=== PATIENT | female | born 1945 | race American Indian/Alaskan Native ===

== ENCOUNTER 2020-08-13 05:01 | Emergency (ER) | payer MEDICAID, MEDICARE ==
[2020-08-13] MEDS ORDERED: fentaNYL 100 MCG/2 ML INJ IV ONE (05:26)
[2020-08-13] MEDS ORDERED: ONDANSETRON 4 MG/2 ML INJ IV ONE (05:26)
--- NOTE | 2020-08-13 05:29 | Emergency Department Report ---
Chief Complaint: Abdominal Pain Stated Complaint: ABDOMINAL PAIN Time Seen by Provider: 08/13/20 05:28 - HPI History of Present Illness: 74-year-old female present with a chief complaint of diffuse abdominal pain for 1 day. Patient admits to nausea vomiting and some constipation. Patient denies history of fever or dysuria - Exam Vital Signs: Vital Signs 08/13/20 05:05 Temperature 98.5 F Pulse Rate 79 Respiratory 18 Rate Blood Pressure 155/75 O2 Sat by Pulse 97 Oximetry MSE screening note: Focused history and physical exam performed. Due to findings the following was ordered: Analgesia CT abdomen pelvis ED Disposition for MSE Condition: Stable Instructions: Abdominal Pain (ED)
[2020-08-13 05:36] LABS: Bilirubin,Urine NEG (Negative); Blood,Urine NEG (Negative); Color,Urine Yellow (Yellow); Mucus,Urine FEW /HPF
[2020-08-13 05:50] LABS: Basophils % (Auto) 0.5 % (0.0-1.8); Eosinophils % (Auto) 0.5 % (0.0-4.3); Hematocrit 36.4 % (30.3-42.9); Hemoglobin 12.6 gm/dl (10.1-14.3); Lymphocytes # (Auto) 0.7 K/mm3 (1.2-5.4); Lymphocytes % (Auto) 8.3 % (13.4-35.0); Mean Corpuscular HGB Conc 34 % (30-34); Mean Corpuscular Volume 83 fl (79-97); Monocytes # (Auto) 0.2 K/mm3 (0.0-0.8); Monocytes % (Auto) 2.6 % (0.0-7.3); Platelet Count 235 K/mm3 (140-440); Red Cell Distribution Width 15.9 % (13.2-15.2)
[2020-08-13 06:06] LABS: Alanine Aminotransferase 214 units/L (7-56); BUN/Creatinine Ratio 18; Blood Urea Nitrogen 16 mg/dL (7-17); Calcium 10.2 mg/dL (8.4-10.2); Hemolysis Index 2
--- NOTE | 2020-08-13 06:08 | Emergency Department Report ---
HPI - General Chief Complaint: Abdominal Pain Time Seen by Provider: 08/13/20 05:28 - HPI HPI: This is a 74-year-old -[place] female presents to the emergency department with a complaint of a 1 day history of generalized abdominal pain, along with some associated nausea without vomiting. Patient has denies any fever, constipation, diarrhea, dysuria, vaginal bleeding or discharge. She did not take anything for symptoms prior to presentation. Prior to receiving any analgesia this morning, the patient's abdominal pain is 10 out of 10. It wo rsens with any type of movement. It improves with staying still. She has a past medical history of hypertension, diet-controlled diabetes, osteoarthritis of the knees. She has a surgical history of a cholecystectomy and total hysterectomy. She is switching primary care physicians and about to establish care with 1. Patient also says that she does have some level of chronic kidney disease for which she follows with a waxed bag machine operator but has been told that her kidneys are "good to go." No recent travel or sick contacts at home. ED Past Medical Hx - Past Medical History Previous Medical History?: Yes Hx Hypertension: Yes (Denies CP) Hx Diabetes: Yes (2009;DIET CONTROLLED ) Hx Renal Disease: No Hx Arthritis: Yes (KNEES) Hx Headaches / Migraines: Yes - Surgical History Past Surgical History?: Yes Hx Cholecystectomy: Yes (1979) - Social History Smoking Status: Never Smoker Substance Use Type: None - Medications Home Medications: Home Medications Medication Instructions Recorded Confirmed Last Taken Type Aspirin EC [Aspirin Enteric Coated 81 mg PO QDAY 07/08/14 07/08/14 05/27/14 History TAB] Carvedilol 25 mg PO BID 07/08/14 07/14/14 07/14/14 05:00 History Furosemide 40 mg PO BID 07/08/14 07/14/14 07/13/14 History Ketorolac Ophth Soln (Nf) [Acular 1 drop OP BID 07/08/14 07/14/14 07/13/14 History Ophth Soln 0.5%] Ranitidine HCl [Zantac] 150 mg PO QDAY 07/08/14 07/14/14 07/14/14 05:00 History Travoprost (Nf) [Travatan Z 0.004%] 1 drop OP HS 07/08/14 07/08/14 Unknown History Valsartan [Diovan] 160 mg PO DAILY 07/08/14 07/14/14 07/13/14 History Vitamin B Complex [Super B-50 2,000 units PO DAILY 07/08/14 07/14/14 07/12/14 History Complex] prednisoLONE ACETATE 1% [Pred 1 drop OP DAILY 07/08/14 07/14/14 07/13/14 History Forte 1%] Ciprofloxacin HCl 500 mg PO BID #14 tablet 08/13/20 Unknown Rx metroNIDAZOLE [Flagyl] 500 mg PO Q12HR #14 tab 08/13/20 Unknown Rx ED Review of Systems ROS: Stated complaint: ABDOMINAL PAIN Other details as noted in HPI Comment: All other systems reviewed and negative Constitutional: denies: chills, fever Eyes: denies: eye pain, vision change ENT: denies: ear pain, throat pain Respiratory: denies: cough, shortness of breath Cardiovascular: denies: chest pain, palpitations Gastrointestinal: abdominal pain, nausea. denies: vomiting Genitourinary: denies: dysuria, discharge Musculoskeletal: denies: back pain, arthralgia Skin: denies: rash, lesions Neurological: denies: headache, weakness Physical Exam - Physical Exam Vital Signs: Vital Signs 08/13/20 05:05 Temperature 98.5 F Pulse Rate 79 Respiratory 18 Rate Blood Pressure 155/75 O2 Sat by Pulse 97 Oximetry Physical Exam: GENERAL: The patient is well-developed well-nourished. HENT: Normocephalic. Atraumatic. Patient has moist mucous membranes. EYES: Extraocular motions are intact. NECK: Supple. Trachea is midline. CHEST/LUNGS: Clear to auscultation. There is no respiratory distress noted. HEART/CARDIOVASCULAR: Regular. There is no tachycardia. There is no murmur. ABDOMEN: Abdomen is soft. Generalized abdominal tenderness to palpation. No guarding. Patient has normal bowel sounds. There is no abdominal distention. SKIN: Skin is warm and dry. NEURO: The patient is awake, alert, and oriented. The patient is cooperative. The patient has no focal neurologic deficits. Normal speech. MUSCULOSKELETAL: There is no tenderness or deformity. There is no limitation range of motion. ED Course Vital Signs 08/13/20 05:05 Temperature 98.5 F Pulse Rate 79 Respiratory 18 Rate Blood Pressure 155/75 O2 Sat by Pulse 97 Oximetry ED Medical Decision Making - Lab Data Result diagrams: 08/13/20 05:18 08/13/20 05:18 Lab Results 08/13/20 08/13/20 08/13/20 Range/Units 05:18 05:18 05:18 WBC 8.4 (4.5-11.0) K/mm3 RBC 4.40 (3.65-5.03) M/mm3 Hgb 12.6 (10.1-14.3) gm/dl Hct 36.4 (30.3-42.9) % MCV 83 (79-97) fl MCH 29 (28-32) pg MCHC 34 (30-34) % RDW 15.9 H (13.2-15.2) % Plt Count 235 (140-440) K/mm3 Lymph % (Auto) 8.3 L (13.4-35.0) % Isabella % (Auto) 2.6 (0.0-7.3) % Eos % (Auto) 0.5 (0.0-4.3) % Baso % (Auto) 0.5 (0.0-1.8) % Lymph # (Auto) 0.7 L (1.2-5.4) K/mm3 Isabella # (Auto) 0.2 (0.0-0.8) K/mm3 Eos # (Auto) 0.0 (0.0-0.4) K/mm3 Baso # (Auto) 0.0 (0.0-0.1) K/mm3 Seg Neutrophils % 88.1 H (40.0-70.0) % Seg Neutrophils # 7.4 (1.8-7.7) K/mm3 Sodium 135 L (137-145) mmol/L Potassium 3.8 (3.6-5.0) mmol/L Chloride 98.3 (98-107) mmol/L Carbon Dioxide 24 (22-30) mmol/L Anion Gap 17 mmol/L BUN 16 (7-17) mg/dL Creatinine 0.9 (0.6-1.2) mg/dL Estimated GFR > 60 ml/min BUN/Creatinine Ratio 18 % Glucose 171 H (65-100) mg/dL Calcium 10.2 (8.4-10.2) mg/dL Total Bilirubin 2.50 H (0.1-1.2) mg/dL AST 359 H (5-40) units/L ALT 214 H (7-56) units/L Alkaline Phosphatase 343 H (35-129) units/L Total Protein 8.6 H (6.3-8.2) g/dL Albumin 5.0 (3.9-5) g/dL Albumin/Globulin Ratio 1.4 % Lipase (13-60) units/L Urine Color Yellow (Yellow) Urine Turbidity Clear (Clear) Urine pH 8.0 H (5.0-7.0) Ur Specific [place] 1.009 (1.003-1.030) Urine Protein 100 mg/dl (Negative) mg/dL Urine Glucose (UA) 150 (Negative) mg/dL Urine Ketones Neg (Negative) mg/dL Urine Blood Neg (Negative) Urine Nitrite Neg (Negative) Urine Bilirubin Neg (Negative) Urine Urobilinogen 2.0 (<2.0) mg/dL Ur Leukocyte Esterase Neg (Negative) Urine WBC (Auto) 1.0 (0.0-6.0) /HPF Urine RBC (Auto) 1.0 (0.0-6.0) /HPF U Epithel Cells (Auto) < 1.0 (0-13.0) /HPF Urine Mucus Few /HPF 03/20/21 Range/Units 05:18 WBC (4.5-11.0) K/mm3 RBC (3.65-5.03) M/mm3 Hgb (10.1-14.3) gm/dl Hct (30.3-42.9) % MCV (79-97) fl MCH (28-32) pg MCHC (30-34) % RDW (13.2-15.2) % Plt Count (140-440) K/mm3 Lymph % (Auto) (13.4-35.0) % Isabella % (Auto) (0.0-7.3) % Eos % (Auto) (0.0-4.3) % Baso % (Auto) (0.0-1.8) % Lymph # (Auto) (1.2-5.4) K/mm3 Isabella # (Auto) (0.0-0.8) K/mm3 Eos # (Auto) (0.0-0.4) K/mm3 Baso # (Auto) (0.0-0.1) K/mm3 Seg Neutrophils % (40.0-70.0) % Seg Neutrophils # (1.8-7.7) K/mm3 Sodium (137-145) mmol/L Potassium (3.6-5.0) mmol/L Chloride (98-107) mmol/L Carbon Dioxide (22-30) mmol/L Anion Gap mmol/L BUN (7-17) mg/dL Creatinine (0.6-1.2) mg/dL Estimated GFR ml/min BUN/Creatinine Ratio % Glucose (65-100) mg/dL Calcium (8.4-10.2) mg/dL Total Bilirubin (0.1-1.2) mg/dL AST (5-40) units/L ALT (7-56) units/L Alkaline Phosphatase (35-129) units/L Total Protein (6.3-8.2) g/dL Albumin (3.9-5) g/dL Albumin/Globulin Ratio % Lipase 41 (13-60) units/L Urine Color (Yellow) Urine Turbidity (Clear) Urine pH (5.0-7.0) Ur Specific [place] (1.003-1.030) Urine Protein (Negative) mg/dL Urine Glucose (UA) (Negative) mg/dL Urine Ketones (Negative) mg/dL Urine Blood (Negative) Urine Nitrite (Negative) Urine Bilirubin (Negative) Urine Urobilinogen (<2.0) mg/dL Ur Leukocyte Esterase (Negative) Urine WBC (Auto) (0.0-6.0) /HPF Urine RBC (Auto) (0.0-6.0) /HPF U Epithel Cells (Auto) (0-13.0) /HPF Urine Mucus /HPF - Radiology Data Radiology results: report reviewed CT ABDOMEN AND PELVIS WITH CONTRAST INDICATION: Diffuse abdominal pain n/v. TECHNIQUE: Axial CT images were obtained through the abdomen and pelvis after 100 cc IV contrast. All CT scans at this location are performed using CT dose reduction for ALARA by means of automated e xposure control. COMPARISON: None available. FINDINGS: LOWER CHEST: No significant abnormality. LIVER: No significant abnormality. GALLBLADDER: Surgically absent. BILE DUCTS: No significant abnormality. PANCREAS: No significant abnormality. SPLEEN: No significant abnormality. ADRENALS: No significant abnormality. RIGHT KIDNEY and URETER: 1.5 cm exophytic right renal lesion with increased attenuation within it or enhancement LEFT KIDNEY and URETER: No significant abnormality. STOMACH and SMALL BOWEL: No significant abnormality. COLON: Extensive right-sided colonic diverticulosis with mild pericolonic inflammation. Mild colonic diverticulosis APPENDIX: Normal PERITONEUM: No free fluid. No free air. No fluid collection. LYMPH NODES: No significant adenopathy. AORTA and ARTERIES: Moderate vascular calcifications nonaneurysmal aorta and SMA. IVC and VEINS: No significant abnormality. URINARY BLADDER: No significant abnormality. REPRODUCTIVE ORGANS: Surgically absent ADDITIONAL FINDINGS: None. SKELETAL SYSTEM: Moderate facet degenerative disease lumbar spine. IMPRESSION: 1. Mild uncomplicated right-sided diverticulitis. No abscess or free air. 2. Probable 1.5 cm right renal cell carcinoma versus less likely complex cyst. Recommend renal ultrasound or pre and postcontrast CT for confirmation - Medical Decision Making This patient presents to the emergency department with complaint of a 1 day history of generalized abdominal pain, along with some nausea and vomiting. On examination the patient does have some reproducible abdominal tenderness to palpation, but otherwise the abdomen is soft, nondistended and nontoxic in appearance. Patient's labs shows transaminitis as well as elevated bilirubin. Patient does have a history of a previous cholecystectomy. CT scan of the abdomen and pelvis with IV contrast was done that shows diffuse mild uncomplicated diverticulitis without abscess formation or microperforation. Despite the transaminitis the liver appears normal. CT also shows a 1.5 cm exophytic right renal lesion that radiology reads as concern for renal cell carcinoma versus a complicated cyst. The patient has normal renal function. Patient was given a dose of IV Levaquin and Flagyl. Vital signs have been reassuring throughout her ED course including being afebrile. The patient does not have any leukocytosis. The diverticulitis appears uncomplicated. For all these reasons the patient will be discharged home and we will attempt to treat in the outpatient setting. The patient does have good outpatient follow-up with primary care, nephrology and gastroenterology. She will return to the emergency department with any worsening of her symptoms or with any acute distress. Critical Care Time: No Critical care attestation.: If time is entered above; I have spent that time in minutes in the direct care of this critically ill patient, excluding procedure time. ED Disposition Clinical Impression: Diverticulitis, Renal lesion, Elevated liver enzymes Disposition: TO HOME OR SELFCARE Is pt being admited?: No Condition: Stable Instructions: Diverticulitis, Abdominal Pain (ED) Additional Instructions: Please follow-up with your primary care physician in the next few days. Please follow-up with your vending machine collector regarding the findings of dive rticulitis, your elevated liver enzymes, and your abdominal pains. Please follow-up with your waxed bag machine operator regarding the CT findings of a right kidney lesion. Please avoid any Tylenol/acetaminophen use, or any alcohol use, until follow-up with your vending machine collector, secondary to the elevated liver enzymes. You have been prescribed a medication that is sedating and therefore should not be taken prior to driving, working, and responsible for children and in no way should be mixed with alcohol of any quantity. Return to the emergency department with any worsening of your symptoms, new or concerning symptoms not addressed during this current emergency department visit, or with any acute distress. Prescriptions: Ciprofloxacin HCl 500 mg PO BID #14 tablet metroNIDAZOLE [Flagyl] 500 mg PO Q12HR #14 tab Referrals: PCP, Your [Other] - 2-3 Days Trap Operator, Your [Other] - 2-3 Days Residential Manager, Your [Other] - 2-3 Days Time of Disposition: 08:07
--- NOTE | 2020-08-13 06:48 | Cat Scan Report ---
CT ABDOMEN AND PELVIS WITH CONTRAST INDICATION: Diffuse abdominal pain n/v. TECHNIQUE: Axial CT images were obtained through the abdomen and pelvis after 100 cc IV contrast. All CT scans at this location are performed using CT dose reduction for ALARA by means of automated exposure contr ol. COMPARISON: None available. FINDINGS: LOWER CHEST: No significant abnormality. LIVER: No significant abnormality. GALLBLADDER: Surgically absent. BILE DUCTS: No significant abnormality. PANCREAS: No significant abnormality. SPLEEN: No significant abnormality. ADRENALS: No significant abnormality. RIGHT KIDNEY and URETER: 1.5 cm exophytic right renal lesion with increased attenuation within it or enhancement LEFT KIDNEY and URETER: No significant abnormality. STOMACH and SMALL BOWEL: No significant abnormality. COLON: Extensive right-sided colonic diverticulosis with mild pericolonic inflammation. Mild colonic diverticulosis APPENDIX: Normal PERITONEUM: No free fluid. No free air. No fluid collection. LYMPH NODES: No significant adenopathy. AORTA and ARTERIES: Moderate vascular calcifications nonaneurysmal aorta and SMA. IVC and VEINS: No significant abnormality. URINARY BLADDER: No significant abnormality. REPRODUCTIVE ORGANS: Surgically absent ADDITIONAL FINDINGS: None. SKELETAL SYSTEM: Moderate facet degenerative disease lumbar spine. IMPRESSION: 1. Mild uncomplicated right-sided diverticulitis. No abscess or free air. 2. Probable 1.5 cm right renal cell carcinoma versus less likely complex cyst. Recommend renal ultras ound or pre and postcontrast CT for confirmation Signer Name: Eyad Arias MD Signed: 08/13/2020 6:44 AM Workstation Name: [id number]
[2020-08-13] MEDS ORDERED: metroNIDAZOLE/NS 500 MG/100 ML 500 MG/100 ML BAG IV ONE (06:55)
[2020-08-13 07:50] VITALS: BP 143/62
--- NOTE | 2020-08-15 09:19 | Electrocardiograph Report ---
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
== END 2020-08-13 10:02 | disposition home or self-care (01) ==
LOC: ED 05:01
DX: K57.90 Diverticulosis of intestine, part unspecified, without perforation or abscess without bleeding (principal); N28.9 Disorder of kidney and ureter, unspecified; R74.8 Abnormal levels of other serum enzymes; I10 Essential (primary) hypertension; E11.9 Type 2 diabetes mellitus without complications; M19.91 Primary osteoarthritis, unspecified site; Z90.49 Acquired absence of other specified parts of digestive tract; Z79.2 Long term (current) use of antibiotics; Z79.899 Other long term (current) drug therapy; Z88.8 Allergy status to other drugs, medicaments and biological substances
CPT/HCPCS: 36415; 74177; 80053; 81001; 83690; 85025; 93005; 96365; 96366; 96368; 96375; 99284; J1956; J2405; J3010; Q9967

== ENCOUNTER 2021-05-01 05:56 | Observation (INO) | payer MEDICAID, MEDICARE ==
[2021-05-01] MEDS ORDERED: ONDANSETRON 4 MG/2 ML INJ IV ONE (06:40)
[2021-05-01] MEDS ORDERED: MORPHINE 4 MG/1 ML INJ IV ONE ×2 (06:40→09:57)
--- NOTE | 2021-05-01 06:43 | Emergency Department Report ---
HPI - General Chief Complaint: Abdominal Pain Time Seen by Provider: 05/01/21 06:29 - HPI HPI: 75-year-old -[place] female presents to the emergency department with a complaint of severe spasmodic abdominal pain that has been going on for the past 6 hours. It is associated with some nausea without vomiting. The patient was seen here in July of this year for similar symptoms and was found to have uncomplicated diverticulitis and a right-sided renal mass that was undifferentiated as possible carcinoma versus cyst. She says that she has not seen primary care, nephrology, gastroenterology since that time as she has been having multiple orthopedic surgeries and procedures due to lymphedema. She has not taken anything for symptoms prior to presentation. She has a history of hypertension and does present with elevated blood pressure, but has not yet taken her blood pressure medication this morning. She has a history of a previous cholecystectomy and total hysterectomy. Her abdominal pain is 9 out of 10 in intensity. No known aggravating or alleviating factors. ED Past Medical Hx - Past Medical History Hx Hypertension: Yes (Denies CP) Hx Diabetes: Yes (2009;DIET CONTROLLED ) Hx Renal Disease: No Hx Arthritis: Yes (KNEES) Hx Headaches / Migraines: Yes - Surgical History Hx Cholecystectomy: Yes (1979) - Social History Smoking Status: Never Smoker Substance Use Type: None - Medications Home Medications: Home Medications Medication Instructions Recorded Confirmed Last Taken Type Aspirin EC [Aspirin Enteric Coated 81 mg PO QDAY 07/08/14 07/08/14 05/27/14 History TAB] Carvedilol 25 mg PO BID 07/08/14 07/14/14 07/14/14 05:00 History Furosemide 40 mg PO BID 07/08/14 07/14/14 07/13/14 History Ketorolac Ophth Soln (Nf) [Acular 1 drop OP BID 07/08/14 07/14/14 07/13/14 History Ophth Soln 0.5%] Ranitidine HCl [Zantac] 150 mg PO QDAY 07/08/14 07/14/14 07/14/14 05:00 History Travoprost (Nf) [Travatan Z 0.004%] 1 drop OP HS 07/08/14 07/08/14 Unknown History Valsartan [Diovan] 160 mg PO DAILY 07/08/14 07/14/14 07/13/14 History Vitamin B Complex [Super B-50 2,000 units PO DAILY 07/08/14 07/14/14 07/12/14 History Complex] prednisoLONE ACETATE 1% [Pred 1 drop OP DAILY 07/08/14 07/14/14 07/13/14 History Forte 1%] Ciprofloxacin HCl 500 mg PO BID #14 tablet 08/13/20 Unknown Rx metroNIDAZOLE [Flagyl] 500 mg PO Q12HR #14 tab 08/13/20 Unknown Rx ED Review of Systems ROS: Stated complaint: STOMACH PAIN Other details as noted in HPI Comment: All other systems reviewed and negative Constitutional: denies: chills, fever Eyes: denies: eye pain, vision change ENT: denies: ear pain, throat pain Respiratory: denies: cough, shortness of breath Cardiovascular: denies: chest pain, palpitations Gastrointestinal: abdominal pain, nausea. denies: vomiting, diarrhea, constipation, melena Genitourinary: denies: dysuria, discharge Musculoskeletal: denies: back pain, arthralgia Skin: denies: rash, lesions Neurological: denies: headache, weakness Physical Exam - Physical Exam Vital Signs: Vital Signs 05/01/21 06:03 Temperature 98.7 F Pulse Rate 61 Respiratory 22 Rate Blood Pressure 184/68 O2 Sat by Pulse 95 Oximetry Physical Exam: GENERAL: The patient is well-developed well-nourished. HENT: Normocephalic. Atraumatic. Patient has moist mucous membranes. EYES: Extraocular motions are intact. NECK: Supple. Trachea is midline. CHEST/LUNGS: Clear to auscultation. There is no respiratory distress noted. HEART/CARDIOVASCULAR: Regular. There is no tachycardia. There is no murmur. ABDOMEN: Abdomen is soft. Generalized abdominal tenderness to palpation. Mild guarding. Patient has normal bowel sounds. Obese abdomen. SKIN: Skin is warm and dry. Bilateral lower extremity lymphedema. NEURO: The patient is awake, alert, and oriented. The patient is cooperative. The patient has no focal neurologic deficits. Normal speech. MUSCULOSKELETAL: There is no tenderness or deformity. ED Course Vital Signs 05/01/21 06:03 Temperature 98.7 F Pulse Rate 61 Respiratory 22 Rate Blood Pressure 184/68 O2 Sat by Pulse 95 Oximetry - Consultations Consultation #1: 05/01/21 11:02 I spoke to the optimization analyst on-call, Dr. Malhotra. He listened to the case presentation including the lab results and CT imaging results. The patient will need an MRCP and they will consult on the patient. ED Medical Decision Making - Lab Data Result diagrams: 05/01/21 07:01 05/01/21 07:01 - Radiology Data Radiology results: report reviewed, image reviewed interpreted by me: Chest x-ray does not show any acute process. There are no pleural effusions, obvious pneumonia and there is no pneumothorax. No widened mediastinum. Abdominal x-ray shows nonspecific nonobstructive bowel gas. No free air. CT ABDOMEN AND PELVIS WITH CONTRAST INDICATION / CLINICAL INFORMATION: Abd pain. [id number] 100CC.. TECHNIQUE: Axial CT images were obtained through the abdomen and pelvis after 100 cc of Omnipaque 300 IV contrast. Sagittal and coronal reformatted images. All CT scans at this location are performed using CT dose reduction for ALARA by means of automated exposure control. COMPARISON: 08/13/2020 FINDINGS: LOWER CHEST: No significant abnormality. LIVER: No significant abnormality. GALLBLADDER: Surgically removed. BILE DUCTS: Moderate diffuse intrahepatic and extrahepatic biliary dilatation has developed/increased since the previous exam. The common bile duct measures up to 8-9 mm in diameter. No obvious obstructing lesion is identified in the distal common bile duct on CT. PANCREAS: There is perhaps mild dilatation of the pancreatic duct is well measuring up to 4 mm in diameter. Again this appears slightly increased since the previous exam. There appears to be pancreas divisum. SPLEEN: No significant abnormality. ADRENALS: No significant abnormality. RIGHT KIDNEY and URETER: Stable appearance of the 1.8 cm enhancing lesion near mid pole in the right kidney. Subcentimeter cyst near mid pole is also unchanged. No hydronephrosis. LEFT KIDNEY and URETER: No significant abnormality. STOMACH and SMALL BOWEL: No significant abnormality. COLON: Stable mild diverticulosis of the colon. No acute inflammation or obstruction. APPENDIX: No significant abnormality. PERITONEUM: No free fluid. No free air. No fluid collection. LYMPH NODES: No significant adenopathy. AORTA and ARTERIES: Mild atherosclerotic calcification without acute abnormality. IVC and VEINS: No significant abnormality. URINARY BLADDER: No significant abnormality. REPRODUCTIVE ORGANS: Hysterectomy ADDITIONAL FINDINGS: None. SKELETAL SYSTEM: No acute injury or bony lesion. Moderate discogenic DJD and facet arthropathy at L3-4 with grade 1 anterolisthesis. IMPRESSION: Moderate diffuse biliary dilatation, and possibly pancreatic duct dilatation, has developed or increased since 08/13/2020 exam. There is been previous cholecystectomy. No obvious obstructing lesion is identified in the distal common bile duct. 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 Correlate for biliary symptoms and consider further evaluation with MRCP. Stable appearance of the 1.8 cm enhancing mass in the mid right kidney. Renal neoplasm is not excluded. Mild diverticulosis of the colon without evidence of diverticulitis. - Medical Decision Making This patient presents with acute abdominal pain that started around midnight. On examination there is reproducible abdominal tenderness to palpation. The patient continues to wince secondary to spasmodic pains. Labs shows elevated bilirubin, transaminitis, and elevated LFTs, but these are consistent with her previous visit in July. CT scan of the abdomen pelvis shows dilated intrahepatic and extrahepatic bile duct that was not previously seen on the CT scan of the abdomen pelvis from July. GI was contacted and consulted. The patient was sent for an MRCP after admission orders were placed. I did check up on this and it appears that patient does have choledocholithiasis. Patient was admitted to the hospitalist service. Critical Care Time: No Critical care attestation.: If time is entered above; I have spent that time in minutes in the direct care of this critically ill patient, excluding procedure time. ED Disposition Clinical Impression: Intractable abdominal pain, Dilated bile duct, Abnormal CT of the abdomen, Elevated bilirubin, Elevated alkaline phosphatase level, Transaminitis, Choledocholithiasis Disposition: ADMITTED INPATIENT Is pt being admited?: Yes Condition: Fair Time of Disposition: 11:03
[2021-05-01 07:34] LABS: Basophils % (Auto) 0.5 % (0.0-1.8); Eosinophils % (Auto) 0.3 % (0.0-4.3); Hematocrit 37.3 % (30.3-42.9); Hemoglobin 11.9 gm/dl (10.1-14.3); Lymphocytes # (Auto) 0.5 K/mm3 (1.2-5.4); Lymphocytes % (Auto) 8.1 % (13.4-35.0); Mean Corpuscular HGB Conc 32 % (30-34); Mean Corpuscular Volume 84 fl (79-97); Monocytes # (Auto) 0.3 K/mm3 (0.0-0.8); Monocytes % (Auto) 4.4 % (0.0-7.3); Platelet Count 227 K/mm3 (140-440); Red Blood Count 4.43 M/mm3 (3.65-5.03); Red Cell Distribution Width 15.3 % (13.2-15.2)
[2021-05-01 07:47] LABS: Alanine Aminotransferase 195 units/L (7-56); Albumin 4.6 g/dL (3.9-5); BUN/Creatinine Ratio 11; Bilirubin,Direct 2.4 mg/dL (0-0.2); Blood Urea Nitrogen 10 mg/dL (7-17); Calcium 10.1 mg/dL (8.4-10.2); Hemolysis Index 8
--- NOTE | 2021-05-01 08:33 | XRay Report ---
ABDOMINAL SERIES WITH CHEST X-RAY ONE VIEW INDICATION: Abd pain. COMPARISON: None. IMPRESSION: Single view of the chest is within normal limits. The lungs are clear. Supine and uprig ht views the abdomen demonstrate no evidence for dilated bowel, fluid levels or free air. Normal stoo l in the colon. No pathologic calcifications are appreciated. Signer Name: Brendan Manriquez Jr, MD Signed: 05/01/2021 8:29 AM Workstation Name: [id number]
--- NOTE | 2021-05-01 09:36 | Cat Scan Report ---
CT ABDOMEN AND PELVIS WITH CONTRAST INDICATION / CLINICAL INFORMATION: Abd pain. [id number] 100CC.. TECHNIQUE: Axial CT images were obtained through the abdomen and pelvis after 100 cc of Omnipaque 300 IV contras t. Sagittal and coronal reformatted images. All CT scans at this location are performed using CT dose reduction for ALARA by means of automated exposure control. COMPARISON: 08/13/2020 FINDINGS: LOWER CHEST: No significant abnormality. LIVER: No significant abnormality. GALLBLADDER: Surgically removed. BILE DUCTS: Moderate diffuse intrahepatic and extrahepatic biliary dilatation has developed/increased since the previous exam. The common bile duct measures up to 8-9 mm in diameter. No obvious obstruct ing lesion is identified in the distal common bile duct on CT. PANCREAS: There is perhaps mild dilatation of the pancreatic duct is well measuring up to 4 mm in rosalva meter. Again this appears slightly increased since the previous exam. There appears to be pancreas di visum. SPLEEN: No significant abnormality. ADRENALS: No significant abnormality. RIGHT KIDNEY and URETER: Stable appearance of the 1.8 cm enhancing lesion near mid pole in the right kidney. Subcentimeter cyst near mid pole is also unchanged. No hydronephrosis. LEFT KIDNEY and URETER: No significant abnormality. STOMACH and SMALL BOWEL: No significant abnormality. COLON: Stable mild diverticulosis of the colon. No acute inflammation or obstruction. APPENDIX: No significant abnormality. PERITONEUM: No free fluid. No free air. No fluid collection. LYMPH NODES: No significant adenopathy. AORTA and ARTERIES: Mild atherosclerotic calcification without acute abnormality. IVC and VEINS: No significant abnormality. URINARY BLADDER: No significant abnormality. REPRODUCTIVE ORGANS: Hysterectomy ADDITIONAL FINDINGS: None. SKELETAL SYSTEM: No acute injury or bony lesion. 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 IMPRESSION: Moderate diffuse biliary dilatation, and possibly pancreatic duct dilatation, has developed or incre ased since 08/13/2020 exam. There is been previous cholecystectomy. No obvious obstructing lesion is i dentified in the distal common bile duct. 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 Correlate for biliary sympto ms and consider further evaluation with MRCP. Stable appearance of the 1.8 cm enhancing mass in the mid right kidney. Renal neoplasm is not exclude d. Mild diverticulosis of the colon without evidence of diverticulitis. Signer Name: Brendan Manriquez Jr, MD Signed: 05/01/2021 9:31 AM Workstation Name: [id number]
[2021-05-01 10:23] LABS: Bilirubin,Urine NEG (Negative); Blood,Urine NEG (Negative); Color,Urine Yellow (Yellow); Mucus,Urine FEW /HPF; WBC,Urine < 1.0 /HPF (0.0-6.0)
[2021-05-01] MEDS ORDERED: MORPHINE 4 MG/1 ML INJ IV PRN (11:30)
[2021-05-01] MEDS ORDERED: ACETAMINOPHEN 325 MG TAB PO PRN (11:30)
[2021-05-01] MEDS ORDERED: IBUPROFEN 600 MG TAB PO PRN (12:00)
[2021-05-01] MEDS ORDERED: ONDANSETRON 4 MG/2 ML INJ IV PRN (12:00)
[2021-05-01] MEDS ORDERED: MORPHINE 2 MG/1 ML INJ IV PRN (12:00)
--- NOTE | 2021-05-01 12:44 | Magnetic Resonance Report ---
MRI ABDOMEN MRCP INDICATION / CLINICAL INFORMATION: Abd pain, abnormal CT, elevated bili/LFT/alk phos CHOLECYSTECTOMY. TECHNIQUE: Multiplanar, multisequence series were obtained through the abdomen. Thin slab and radial MRCP images . COMPARISON: CT abdomen and pelvis performed earlier today FINDINGS: LIVER: No significant abnormality. GALLBLADDER: Surgically removed. BILE DUCTS: Moderate diffuse biliary dilatation is again seen on MRCP. The common bile duct measures 9 mm in diameter. A small filling defect is identified in the distal common bile duct consistent with choledocholithiasis. PANCREAS: No significant abnormality. No obvious pancreatic ductal dilatation on MRCP. Pancreas divis um is present. SPLEEN: No significant abnormality. ADRENALS: No significant abnormality. RIGHT KIDNEY AND URETER: 1.7 cm solid appearing mass near mid pole is again noted. LEFT KIDNEY AND URETER: No significant abnormality. STOMACH AND VISUALIZED BOWEL: No significant abnormality. PERITONEUM: No free fluid. No free air. No fluid collection. LYMPH NODES: No significant adenopathy. AORTA and ARTERIES: No significant abnormality. IVC and VEINS: No significant abnormality. ADDITIONAL FINDINGS: None. SKELETAL SYSTEM: No significant abnormality. IMPRESSION: Choledocholithiasis with moderate diffuse biliary dilatation. Pancreas divisum. 1.7 cm solid right renal mass. This appears unchanged since CT abdomen pelvis dated 08/13/2020. Renal neoplasm is not excluded. Signer Name: Brendan Manriquez Jr, MD Signed: 05/01/2021 12:40 PM Workstation Name: [id number]
--- NOTE | 2021-05-01 14:38 | History and Physical Report ---
History of Present Illness Date of examination: 05/01/21 Date of admission: 05/01/21 11:03 Chief complaint: Abdominal pain History of present illness: The patient is a 75-year-old female with past medical history of xci-ffrqcum-qqcfelged diabetes, bilateral osteoarthritis of knees, hypertension who presented with 9/10, spasmodic abdominal pain that been going on for approximately 6 hours without nausea or vomiting. The patient describes having the symptoms in July 2020, and at that point in time she was found to have uncomplicated diverticulitis with a right sided renal mass (etiology has not been determinedcarcinoma versus cyst). The patient has a history of cholecystectomy and total hysterectomy. The patient in the ED was found to have the following labs: Total bilirubin 3.3, direct bilirubin 2.4, AST 265, ALT 195, and alkaline phosphatase 431. CT abdomen and pelvis revealed dilated biliary tree and possible pancreatic duct dilation. The patient is being admitted for management of possible choledocholithiasis. Past History Past Medical History: arthritis (Of bilateral knees), diabetes (Diet controlled), hypertension Past Surgical History: cholecystectomy, hysterectomy Social history: lives with family Medications and Allergies Allergies Allergy/AdvReac Type Severity Reaction Status Date / Time acetaminophen AdvReac Vomiting Verified 07/08/14 14:34 [From Darvocet-N] coconut oil AdvReac Shortness Verified 07/08/14 14:34 of Breath meperidine HCl [From Demerol] AdvReac Vomiting Verified 07/08/14 14:34 propoxyphene napsylate AdvReac Vomiting Verified 07/08/14 14:34 [From Darvocet-N] succinylcholine chloride AdvReac Anaphylaxis Verified 07/14/14 10:02 [From Anectine] Home Medications Medication Instructions Recorded Confirmed Last Taken Type Aspirin EC [Aspirin Enteric Coated 81 mg PO QDAY 07/08/14 07/08/14 05/27/14 History TAB] Carvedilol 25 mg PO BID 07/08/14 07/14/14 07/14/14 05:00 History Furosemide 40 mg PO BID 07/08/14 07/14/14 07/13/14 History Ketorolac Ophth Soln (Nf) [Acular 1 drop OP BID 07/08/14 07/14/14 07/13/14 History Ophth Soln 0.5%] Ranitidine HCl [Zantac] 150 mg PO QDAY 07/08/14 07/14/14 07/14/14 05:00 History Travoprost (Nf) [Travatan Z 0.004%] 1 drop OP HS 07/08/14 07/08/14 Unknown History Valsartan [Diovan] 160 mg PO DAILY 07/08/14 07/14/14 07/13/14 History Vitamin B Complex [Super B-50 2,000 units PO DAILY 07/08/14 07/14/14 07/12/14 History Complex] prednisoLONE ACETATE 1% [Pred 1 drop OP DAILY 07/08/14 07/14/14 07/13/14 History Forte 1%] Ciprofloxacin HCl 500 mg PO BID #14 tablet 08/13/20 Unknown Rx metroNIDAZOLE [Flagyl] 500 mg PO Q12HR #14 tab 08/13/20 Unknown Rx Active Meds: Active Medications Carvedilol (Carvedilol 25 Mg Tab) 25 mg PO BID DON Furosemide (Furosemide 40 Mg Tab) 40 mg PO 0600,1800 DON Sodium Chloride (Nacl 0.45% 1000 Ml) 1,000 mls @ 100 mls/hr IV DIRECT DON Ibuprofen (Ibuprofen 600 Mg Tab) 600 mg PO Q6H PRN PRN Reason: Pain, Mild (1-3) Miscellaneous Medication (Ketorolac Ophth Soln (Nf)) 1 drop OP BID DON Miscellaneous Medication (Travoprost (Nf) [Travatan Z 0.004%]) 1 drop OP HS DON Morphine Sulfate (Morphine 2 Mg/1 Ml Inj) 2 mg IV Q4H PRN PRN Reason: Pain , Severe (7-10) Ondansetron HCl (Ondansetron 4 Mg/2 Ml Inj) 4 mg IV Q8H PRN PRN Reason: Nausea And Vomiting Prednisolone Acetate (Prednisolone Acetate 1% Ophth Susp 5 Ml) 1 drops OS DAILY DON Sodium Chloride (Sodium Chloride 0.9% 10 Ml Flush Syringe) 10 ml IV BID DON Sodium Chloride (Sodium Chloride 0.9% 10 Ml Flush Syringe) 10 ml IV PRN PRN PRN Reason: LINE FLUSH Valsartan (Valsartan 160mg Tab) 160 mg PO DAILY [facility] Exam - Constitutional Vitals: Temp Pulse Resp BP Pulse Ox 98.7 F 69 14 159/64 97 05/01/21 06:03 05/01/21 13:27 05/01/21 13:27 05/01/21 13:27 05/01/21 13:27 General appearance: Present: mild distress, well-nourished, obese - EENT Eyes: Present: PERRL, EOM intact ENT: hearing intact, clear oral mucosa - Neck Neck: Present: supple, normal ROM - Respiratory Respiratory effort: normal Respiratory: bilateral: CTA - Cardiovascular Rhythm: regular Heart Sounds: Present: S1 & S2 - Extremities Extremities: no ischemia, pulses intact, pulses symmetrical, No edema, normal te mperature, normal color Peripheral Pulses: within normal limits - Abdominal General gastrointestinal: Present: soft, tender (Significant tenderness of right upper quadrant), non-distended, normal bowel sounds Localized gastrointestinal: tender: RUQ Female genitourinary: Present: deferred - Rectal Rectal Exam: deferred - Integumentary Integumentary: Present: clear, warm, dry - Musculoskeletal Musculoskeletal: strength equal bilaterally - Psychiatric Psychiatric: appropriate mood/affect, intact judgment & insight, cooperative - Neurologic Neurologic: CNII-XII intact, moves all extremities - Allied Health Allied health notes reviewed: nursing Results - Labs CBC & Chem 7: 05/01/21 07:01 05/01/21 07:01 Labs: Laboratory Last Values WBC 6.4 K/mm3 (4.5-11.0) 05/01/21 07:01 RBC 4.43 M/mm3 (3.65-5.03) 05/01/21 07:01 Hgb 11.9 gm/dl (10.1-14.3) 05/01/21 07:01 Hct 37.3 % (30.3-42.9) 05/01/21 07:01 MCV 84 fl (79-97) 05/01/21 07:01 MCH 27 pg (28-32) L 05/01/21 07:01 MCHC 32 % (30-34) 05/01/21 07:01 RDW 15.3 % (13.2-15.2) H 05/01/21 07:01 Plt Count 227 K/mm3 (140-440) 05/01/21 07:01 Lymph % (Auto) 8.1 % (13.4-35.0) L 05/01/21 07:01 [place] % (Auto) 4.4 % (0.0-7.3) 05/01/21 07:01 Eos % (Auto) 0.3 % (0.0-4.3) 05/01/21 07:01 Baso % (Auto) 0.5 % (0.0-1.8) 05/01/21 07:01 Lymph # (Auto) 0.5 K/mm3 (1.2-5.4) L 05/01/21 07:01 [place] # (Auto) 0.3 K/mm3 (0.0-0.8) 05/01/21 07:01 Eos # (Auto) 0.0 K/mm3 (0.0-0.4) 05/01/21 07:01 Baso # (Auto) 0.0 K/mm3 (0.0-0.1) 05/01/21 07:01 Seg Neutrophils % 86.7 % (40.0-70.0) H 05/01/21 07:01 Seg Neutrophils # 5.5 K/mm3 (1.8-7.7) 05/01/21 07:01 Sodium 139 mmol/L (137-145) 05/01/21 07:01 Potassium 4.1 mmol/L (3.6-5.0) 05/01/21 07:01 Chloride 101.3 mmol/L (98-107) 05/01/21 07:01 Carbon Dioxide 24 mmol/L (22-30) 05/01/21 07:01 Anion Gap 18 mmol/L 05/01/21 07:01 BUN 10 mg/dL (7-17) 05/01/21 07:01 Creatinine 0.9 mg/dL (0.6-1.2) 05/01/21 07:01 Estimated GFR > 60 ml/min 05/01/21 07:01 BUN/Creatinine Ratio 11 % 05/01/21 07:01 Glucose 171 mg/dL (65-100) H 05/01/21 07:01 Calcium 10.1 mg/dL (8.4-10.2) 05/01/21 07:01 Total Bilirubin 3.30 mg/dL (0.1-1.2) H 05/01/21 07:01 Direct Bilirubin 2.4 mg/dL (0-0.2) H 05/01/21 07:01 Indirect Bilirubin 0.9 mg/dL 05/01/21 07:01 AST 265 units/L (5-40) H 05/01/21 07:01 ALT 195 units/L (7-56) H 05/01/21 07:01 Alkaline Phosphatase 431 units/L (35-129) H 05/01/21 07:01 Total Protein 7.6 g/dL (6.3-8.2) 05/01/21 07:01 Albumin 4.6 g/dL (3.9-5) 05/01/21 07:01 Albumin/Globulin Ratio 1.5 % 05/01/21 07:01 Lipase 36 units/L (13-60) 05/01/21 07:01 Urine Color Yellow (Yellow) 05/01/21 10:10 Urine Turbidity Clear (Clear) 05/01/21 10:10 Urine pH 7.0 (5.0-7.0) 05/01/21 10:10 Ur Specific [place] 1.017 (1.003-1.030) 05/01/21 10:10 Urine Protein 100 mg/dl mg/dL (Negative) 05/01/21 10:10 Urine Glucose (UA) Neg mg/dL (Negative) 05/01/21 10:10 Urine Ketones Neg mg/dL (Negative) 05/01/21 10:10 Urine Blood Neg (Negative) 05/01/21 10:10 Urine Nitrite Neg (Negative) 05/01/21 10:10 Urine Bilirubin Neg (Negative) 05/01/21 10:10 Urine Urobilinogen 2.0 mg/dL (<2.0) 05/01/21 10:10 Ur Leukocyte Esterase Neg (Negative) 05/01/21 10:10 Urine WBC (Auto) < 1.0 /HPF (0.0-6.0) 05/01/21 10:10 Urine RBC (Auto) 1.0 /HPF (0.0-6.0) 05/01/21 10:10 U Epithel Cells (Auto) 1.0 /HPF (0-13.0) 05/01/21 10:10 Urine Mucus Few /HPF 05/01/21 10:10 Assessment and Plan Assessment and plan: The patient is a 75-year-old female with past medical history of ajf-gsatsor-fzfrdorxr diabetes, bilateral osteoarthritis of knees, hypertension who presented with 02/03, spasmodic abdominal pain that been going on for approximately 6 hours without nausea or vomiting. The patient is being admitted for management of possible choledocholithiasis. #Choledocholithiasis #Dilated biliary duct #Elevated transaminases #Hyperbilirubinemia -AST 265, ALT 195, T bili 3.3, D bili 2.4 -Gastroenterology consulted; pending recs -MRCP (05/01/2021) revealing "choledocholithiasis with moderate diffuse biliary dilatation" -Continue to trend liver enzymes and bilirubin. -Holding antibiotics since patient is hemodynamically stable, afebrile, and WBC is within normal limits. -Currently n.p.o.; can be changed to oral diet based on GI recommendations. -Continue to monitor #Hypertension -Presented with elevated blood pressure; however, patient admitted to not taking a.m. meds today. Restarting home antihypertensives: Coreg 25 mg twice daily, -P.o. Lasix 40 mg twice daily, and valsartan 160 mg daily. -Continue to monitor #Mbu-chufple-nmfiahqzj diabetes -Diet controlled -Blood pressure goal [id number] while inpatient -Continue to monitor #Advanced care planning -Disease education conducted, care plan discussed, diagnoses discussed, prognosis discussed, and patient acknowledges understanding with care plan -Time: +30 minutes Advance Directives: No VTE prophylaxis?: Chemical Plan of care discussed with patient/family: Yes
[2021-05-01] MEDS: SODIUM CHLORIDE 0.45% 1000 ML 1,000 ML IV SCH (16:03)
[2021-05-01] MEDS: FUROSEMIDE 40 MG TAB PO SCH (18:15)
[2021-05-01] MEDS ORDERED: KETOROLAC OP SCH (22:00)
[2021-05-01] MEDS ORDERED: TRAVOPROST OP SCH (22:00)
[2021-05-01] MEDS: carvediloL 25 MG TAB PO SCH (22:12)
[2021-05-01] MEDS: KETOROLAC TROMETHAMINE 0.5% OU SCH (23:21)
[2021-05-01] MEDS: LATANOPROST 0.005% OPHTH SOLN 2.5 ML OU SCH (23:22)
[2021-05-02] MEDS: FUROSEMIDE 40 MG TAB PO SCH ×2 (06:54→22:07)
--- NOTE | 2021-05-02 07:03 | Consultation ---
DATE OF CONSULTATION: 05/01/2021 REFERRING PHYSICIAN: Maria D Bagley MD INDICATIONS: 1. Abdominal pain. 2. Increased liver function tests. HISTORY OF PRESENT ILLNESS: The patient is a 75-year-old female with history of diabetes, arthritis, hypertension, status post cholecystectomy in the past, now presents with abdominal pain. The patient reports pain started overnight lasted for 6 hours after eating. She reports similar symptoms in July and was found to have diverticulitis and the renal mass. The patient presented now for similar symptoms. The patient had a CT scan which revealed a dilated common bile duct and a question of pancreatic duct dilation and was admitted and GI consulted. Possibility of choledocholithiasis was raised. PAST MEDICAL HISTORY: 1. Diabetes. 2. Hypertension. 3. Status post cholecystectomy. 4. Status post hysterectomy. ALLERGIES: 1. ACETAMINOPHEN. 2. MEPERIDINE. 3. DARVOCET. 4. ANECTINE. MEDICATIONS: Reviewed and updated in chart. SOCIAL HISTORY: Denies alcohol, tobacco or drug abuse. FAMILY HISTORY: Negative for colon cancer, IBD, or liver disease. REVIEW OF SYSTEMS: GENERAL: Reports some weakness. HEENT: No visual complaints or tinnitus. PULMONARY: No shortness of breath or chest pain. GASTROINTESTINAL: Reports abdominal pain. All points of 13-point review of system otherwise negative. PHYSICAL EXAMINATION: VITAL SIGNS: Temperature of 98.7, pulse 74, respirations 18, blood pressure 135/50. GENERAL: Fairly nourished with no acute distress. HEENT: Pupils round and reactive. PULMONARY: Clear to auscultation bilaterally. CARDIOVASCULAR: Regular rate and rhythm. Normal S1, S2. ABDOMEN: Positive bowel sounds, soft. SKIN: No obvious rashes. LABORATORY DATA: Pertinent for white count of 6.4, hemoglobin and hematocrit 11.9, hematocrit 37.3, platelet count of 227. Chem-7 within normal limits. AST, ALT of 265, 195 with a total bilirubin of 3.3 and an alkaline phosphatase of 431. CT scan abdomen and pelvis with contrast performed on 05/01/2021 showed moderate diffuse biliary dilation and possible pancreatic duct dilation in the setting of noted cholecystectomy. Pancreatic divisum is also suspected. ASSESSMENT: A 75-year-old female status post cholecystectomy in the past, now presents with acute upper abdominal pain with CT scan showing dilated biliary tree as well as pancreatic duct and increased liver function test. Possibility of choledocholithiasis versus other. PLAN: 1. We will review CT scan and ultrasound. 2. Follow labs. 3. MRCP today. 4. Consider ERCP based on MRCP results and patient progress. TID: [id number] RECEIPT: [id number] SCOTTY/EDGAR/SHIRLEY
--- NOTE | 2021-05-02 07:47 | Progress Note ---
Assessment and Plan Assessment and plan: The patient is a 75-year-old female with past medical history of ila-uxgdqym-udmtlwylw diabetes, bilateral osteoarthritis of knees, hypertension who presented with 9/10, spasmodic abdominal pain that been going on for approximately 6 hours without nausea or vomiting. The patient is being admitted for management of possible choledocholithiasis. #Choledocholithiasis #Dilated biliary duct #Elevated transaminases #Hyperbilirubinemia -AST 265, ALT 195, T bili 3.3, D bili 2.4 -Gastroenterology consulted; pending recs -MRCP (05/01/2021) revealing "choledocholithiasis with moderate diffuse biliary dilatation" -Continue to trend liver enzymes and bilirubin. -Holding antibiotics since patient is hemodynamically stable, afebrile, and WBC is within normal limits. -Currently n.p.o.; can be changed to oral diet based on GI recommendations. -Continue to monitor #Hypertension -Presented with elevated blood pressure; however, patient admitted to not taking a.m. meds today. Restarting home antihypertensives: Coreg 25 mg twice daily, -P.o. Lasix 40 mg twice daily, and valsartan 160 mg daily. -Continue to monitor #Qij-rvkogfm-tbwlmzerp diabetes -Diet controlled -Blood pressure goal [id number] while inpatient -Continue to monitor #Advanced care planning -Disease education conducted, care plan discussed, diagnoses discussed, prognosis discussed, and patient acknowledges understanding with care plan -Time: +30 minutes 05/02: She is n.p.o. at this time has not tried any diet but states that she still feels nauseated. Abdominal pain 6/10 BP elevated, will add IV prn Meds. Hold Valsatan 160mg since patient is NPO and start on IV enalapril. Will discuss with GI post procedure about discharge planning per their recommendation if tolerating diet. Plan discussed with the patient and also with the son History Interval history: Patient seen and examined this morning no acute distress also did speak to the son who said the patient has been in pain for some time now. They understand ERCPs to be done today Hospitalist Physical - Physical exam Narrative exam: VITAL SIGNS: Reviewed. GENERAL: The patient appears normally developed, Vital signs as documented. HEAD: No signs of head trauma. EYES: Pupils are equal. Extraocular motions intact. EARS: Hearing grossly intact. MOUTH: Oropharynx is normal. NECK: No adenopathy, no JVD. CHEST: Chest with clear breath sounds bilaterally. No wheezes, rales, or rhonchi. CARDIAC: Regular rate and rhythm. S1 and S2, without murmurs, gallops, or rubs. VASCULAR: No Edema. Peripheral pulses normal and equal in all extremities. ABDOMEN: Soft, epigastric tenderness otherwise non distended. No rebound or guarding, and no masses palpated. Bowel Sounds normal. MUSCULOSKELETAL: Good range of motion of all major joints. Extremities without clubbing, cyanosis. Bilateral lymphedema left greater than right. NEUROLOGIC EXAM: Alert and oriented x 3 No focal sensory or strength deficits. Speech normal. Follows commands. PSYCHIATRIC: Mood normal. SKIN: Surgical scar left shoulder well-healed detail exam as documented in skin assessment - Constitutional Vitals: Temp Pulse Resp BP Pulse Ox 99.4 F 68 20 170/72 93 05/02/21 06:03 05/02/21 06:03 05/02/21 06:03 05/02/21 06:03 05/02/21 06:03 General appearance: Present: mild distress, well-nourished, obese Results - Labs CBC & Chem 7: 05/01/21 07:01 05/01/21 07:01 Labs: Laboratory Last Values WBC 6.4 K/mm3 (4.5-11.0) 05/01/21 07:01 RBC 4.43 M/mm3 (3.65-5.03) 05/01/21 07:01 Hgb 11.9 gm/dl (10.1-14.3) 05/01/21 07:01 Hct 37.3 % (30.3-42.9) 05/01/21 07:01 MCV 84 fl (79-97) 05/01/21 07:01 MCH 27 pg (28-32) L 05/01/21 07:01 MCHC 32 % (30-34) 05/01/21 07:01 RDW 15.3 % (13.2-15.2) H 05/01/21 07:01 Plt Count 227 K/mm3 (140-440) 05/01/21 07:01 Lymph % (Auto) 8.1 % (13.4-35.0) L 05/01/21 07:01 [place] % (Auto) 4.4 % (0.0-7.3) 05/01/21 07:01 Eos % (Auto) 0.3 % (0.0-4.3) 05/01/21 07:01 Baso % (Auto) 0.5 % (0.0-1.8) 05/01/21 07:01 Lymph # (Auto) 0.5 K/mm3 (1.2-5.4) L 05/01/21 07:01 [place] # (Auto) 0.3 K/mm3 (0.0-0.8) 05/01/21 07:01 Eos # (Auto) 0.0 K/mm3 (0.0-0.4) 05/01/21 07:01 Baso # (Auto) 0.0 K/mm3 (0.0-0.1) 05/01/21 07:01 Seg Neutrophils % 86.7 % (40.0-70.0) H 05/01/21 07:01 Seg Neutrophils # 5.5 K/mm3 (1.8-7.7) 05/01/21 07:01 Sodium 139 mmol/L (137-145) 05/01/21 07:01 Potassium 4.1 mmol/L (3.6-5.0) 05/01/21 07:01 Chloride 101.3 mmol/L (98-107) 05/01/21 07:01 Carbon Dioxide 24 mmol/L (22-30) 05/01/21 07:01 Anion Gap 18 mmol/L 05/01/21 07:01 BUN 10 mg/dL (7-17) 05/01/21 07:01 Creatinine 0.9 mg/dL (0.6-1.2) 05/01/21 07:01 Estimated GFR > 60 ml/min 05/01/21 07:01 BUN/Creatinine Ratio 11 % 05/01/21 07:01 Glucose 171 mg/dL (65-100) H 05/01/21 07:01 Calcium 10.1 mg/dL (8.4-10.2) 05/01/21 07:01 Total Bilirubin 3.30 mg/dL (0.1-1.2) H 05/01/21 07:01 Direct Bilirubin 2.4 mg/dL (0-0.2) H 05/01/21 07:01 Indirect Bilirubin 0.9 mg/dL 05/01/21 07:01 AST 265 units/L (5-40) H 05/01/21 07:01 ALT 195 units/L (7-56) H 05/01/21 07:01 Alkaline Phosphatase 431 units/L (35-129) H 05/01/21 07:01 Total Protein 7.6 g/dL (6.3-8.2) 05/01/21 07:01 Albumin 4.6 g/dL (3.9-5) 05/01/21 07:01 Albumin/Globulin Ratio 1.5 % 05/01/21 07:01 Lipase 36 units/L (13-60) 05/01/21 07:01 Urine Color Yellow (Yellow) 05/01/21 10:10 Urine Turbidity Clear (Clear) 05/01/21 10:10 Urine pH 7.0 (5.0-7.0) 05/01/21 10:10 Ur Specific [place] 1.017 (1.003-1.030) 05/01/21 10:10 Urine Protein 100 mg/dl mg/dL (Negative) 05/01/21 10:10 Urine Glucose (UA) Neg mg/dL (Negative) 05/01/21 10:10 Urine Ketones Neg mg/dL (Negative) 05/01/21 10:10 Urine Blood Neg (Negative) 05/01/21 10:10 Urine Nitrite Neg (Negative) 05/01/21 10:10 Urine Bilirubin Neg (Negative) 05/01/21 10:10 Urine Urobilinogen 2.0 mg/dL (<2.0) 05/01/21 10:10 Ur Leukocyte Esterase Neg (Negative) 05/01/21 10:10 Urine WBC (Auto) < 1.0 /HPF (0.0-6.0) 05/01/21 10:10 Urine RBC (Auto) 1.0 /HPF (0.0-6.0) 05/01/21 10:10 U Epithel Cells (Auto) 1.0 /HPF (0-13.0) 05/01/21 10:10 Urine Mucus Few /HPF 05/01/21 10:10 [place]/IV: Voiding Method Toilet Active Medications - Current Medications Current Medications: Generic Name Dose Route Start Last Admin Trade Name Freq PRN Reason Stop Dose Admin Carvedilol 25 mg 05/01/21 22:00 05/01/21 22:12 Carvedilol 25 Mg Tab PO Not Given BID DON Furosemide 40 mg 05/01/21 18:00 05/02/21 06:54 Furosemide 40 Mg Tab PO Not Given 0600,1800 [facility] Sodium Chloride 1,000 mls @ 100 mls/hr 05/01/21 12:00 05/01/21 16:03 Nacl 0.45% 1000 Ml IV 100 mls/hr DIRECT DON Administration Ibuprofen 600 mg 05/01/21 12:00 Ibuprofen 600 Mg Tab PO Q6H PRN Pain, Mild (1-3) Latanoprost 1 drops 05/01/21 22:00 05/01/21 23:22 Latanoprost 0.005% Ophth Soln 2.5 Ml OU Not Given QHS DON Morphine Sulfate 2 mg 05/01/21 12:00 Morphine 2 Mg/1 Ml Inj IV Q4H PRN Pain , Severe (7-10) Ondansetron HCl 4 mg 05/01/21 12:00 Ondansetron 4 Mg/2 Ml Inj IV Q8H PRN Nausea And Vomiting Prednisolone Acetate 1 drops 05/02/21 10:00 Prednisolone Acetate 1% Ophth Susp 5 Ml OS DAILY DON Sodium Chloride 10 ml 05/01/21 22:00 05/01/21 23:22 Sodium Chloride 0.9% 10 Ml Flush Syringe IV Not Given BID DON Sodium Chloride 10 ml 05/01/21 12:00 Sodium Chloride 0.9% 10 Ml Flush Syringe IV PRN PRN LINE FLUSH Valsartan 160 mg 05/02/21 10:00 Valsartan 160mg Tab PO DAILY DON
[2021-05-02] MEDS ORDERED: hydrALAZINE 20 MG/1 ML INJ IV PRN (07:48)
[2021-05-02] MEDS ORDERED: VALSARTAN 160MG TAB PO SCH (10:00)
[2021-05-02] MEDS: carvediloL 25 MG TAB PO SCH ×2 (10:10→22:04)
[2021-05-02] MEDS ORDERED: WATER FOR IRRIG STERILE 250 ML BOTTLE IR ONE (11:10)
[2021-05-02] MEDS ORDERED: SODIUM CHLORIDE 0.9% 100 ML ONE (11:10)
[2021-05-02] MEDS ORDERED: SODIUM CHLORIDE 0.9% 1000 ML 1,000 ML ONE (12:48)
[2021-05-02] MEDS ORDERED: GLUCAGON (HUMAN RECOMBINANT) 1 MG/ML INJ ONE (12:58)
--- NOTE | 2021-05-02 13:05 | Anesthesia Consultation ---
Anesthesia Consult and Med Hx - Airway Anesthetic Teeth Evaluation: Good ROM Head & Neck: Adequate Mental/Hyoid Distance: Adequate Mallampati Class: Class I Intubation Access Assessment: Good - Pulmonary Exam CTA: Yes - Cardiac Exam Cardiac Exam: RRR - Pre-Operative Health Status ASA Pre-Surgery Classification: ASA4 Proposed Anesthetic Plan: MAC - Pulmonary Hx Smoking: Yes (1/2 PPD X 15 YEARS) Hx Asthma: No Hx Sleep Apnea: No - Cardiovascular System Hx Hypertension: Yes ( CHF, LVH) Hx Coronary Artery Disease: No Hx Heart Attack/AMI: No Hx Cardia Arrhythmia: Yes (occasional PVC) - Central Nervous System Hx Neuromuscular Disorder: Yes (migraines) Hx Psychiatric Problems: No - Gastrointestinal Hx Ulcer: Yes Hx Gastroesophageal Reflux Disease: Yes (controlled ) - Endocrine Hx Renal Disease: Yes Hx Liver Disease: Yes (Elevated LFTs) Hx Non-Insulin Dependent Diabetes: Yes (Diet controlled, glucose this am 116) Hx Hypothyroidism: Yes (W/GOITER) - Hematic Hx Anemia: Yes - Other Systems Hx Alcohol Use: No Hx Substance Use: No Hx Cancer: No Hx Obesity: Yes (BMI 40 ) - Additional Comments Anesthesia Medical History Comments: Pt states that she has a hx of PONV and delayed emergence.
--- NOTE | 2021-05-02 13:07 | Anesthesia Day of Surgery ---
Anesthesia Day of Surgery - Day of Surgery Patient Examined: Yes Patient H&P Reviewed: Yes Patient is NPO: Yes
[2021-05-02] MEDS ORDERED: LIDOCAINE MPF (2%) 20 MG/1 ML VIAL 5 ML ONE (13:12)
[2021-05-02] MEDS ORDERED: MIDAZOLAM 2 MG/2 ML INJ ONE (13:13)
[2021-05-02] MEDS ORDERED: propofoL 200 MG/20 ML VIAL IV ONE ×2 (13:13→13:31)
--- NOTE | 2021-05-02 14:30 | Post Operative Note ---
Pre-op diagnosis: biliary stone Post-op diagnosis: same Findings: ERCP: nl ampullae - dilated cbd - sphinterotomy - smaa/medium stone x 2 removed - negative other Procedure: ERCP w/ stone removal Anesthesia: MAC Surgeon: ROXANNA SAUL Estimated blood loss: none Pathology: list Specimen disposition: to lab Condition: stable Disposition: floor
--- NOTE | 2021-05-02 14:55 | Post Anesthesia Evaluation ---
- Post Anesthesia Evaluation Patient Participated: Yes Airway Patent: Yes Stable Respiratory Function: Yes Nausea/Vomiting: No Temp > 96.8F: Yes Pain Manageable: Yes Adequeate Hydration: Yes Anesthesia Complications: No
--- NOTE | 2021-05-02 15:14 | Operative Report ---
DATE OF SURGERY: 05/02/2021 PROCEDURE: ERCP with sphincterotomy and stone extraction. INDICATION: Choledocholithiasis. MEDICATIONS: Propofol per [employer] EXECUTIVE. COMPLICATIONS: None. DESCRIPTION OF PROCEDURE: The patient was brought to the procedure suite. The patient had the procedure discussed with her at length. All risks, complications, and benefits discussed, after which patient signed for the procedure to be performed. The patient was placed in left lateral decubitus position. Mouth block placed in the patient's oral cavity. After adequate sedation with medication as above, endoscope placed in the mouth and brought to level of second portion of duodenum. Retroflexion view performed. The patient's vital signs remained stable throughout the procedure. FINDINGS: There was a normal-appearing ampulla. Sphincterotome with a guidewire was then used to perform the remaining procedure. Cholangiogram showed question of a distal defect, which was not obvious. A medium-size sphincterotomy was then performed. A 12 mm balloon was then used to remove 2 osatu-ip-pcwool stones from the common bile duct. Occlusion cholangiogram showed no other filling defects. No other interventions were performed. No stents were placed. No pancreatogram was performed. The patient tolerated the procedure well. No complications during the procedure. IMPRESSION: 1. Normal ampulla. 2. Cholangiogram with a question of filling defects. 3. Sphincterotomy performed. 4. Stone x 2 removed. 5. No other interventions. RECOMMENDATIONS: 1. Follow labs including LFTs in the morning. 2. Restart p.o. and advance as tolerated. 3. If stable in a.m., okay to discharge from GI standpoint. TID: [id number] RECEIPT: [id number] CAB/TAB/VIS
[2021-05-02 16:45] LABS: Alanine Aminotransferase 262 units/L (7-56); Albumin 4.1 g/dL (3.9-5); BUN/Creatinine Ratio 10; Blood Urea Nitrogen 8 mg/dL (7-17); Calcium 9.4 mg/dL (8.4-10.2); Hemolysis Index 0
--- NOTE | 2021-05-02 16:47 | Fluoroscopy Report ---
INTRAOPERATIVE FLUOROSCOPY: ERCP INDICATION: bile duct stone. TECHNIQUE: Intraoperative spot images were obtained during the procedure. FINDINGS: Papillotomy, sphincterotomy, and balloon sweep performed. Please see procedure note for details. Fluoroscopy Time: 3.2 minutes. Fluoroscopy Images: 8. Signer Name: Myron Madrigal MD Signed: 05/02/2021 4:43 PM Workstation Name: [id number]
[2021-05-02] MEDS: KETOROLAC TROMETHAMINE 0.5% OU SCH ×2 (19:38→22:20)
[2021-05-02] MEDS: ENALAPRILAT 2.5 MG/2 ML INJ IV SCH ×2 (19:38→22:08)
[2021-05-02] MEDS: prednisoLONE ACETATE 1% OPHTH SUSP 5 ML OS SCH (22:07)
[2021-05-02] MEDS: LATANOPROST 0.005% OPHTH SOLN 2.5 ML OU SCH (22:20)
[2021-05-03] MEDS: ENALAPRILAT 2.5 MG/2 ML INJ IV SCH (00:07)
[2021-05-03] MEDS: FUROSEMIDE 40 MG TAB PO SCH (05:22)
[2021-05-03] MEDS: SODIUM CHLORIDE 0.45% 1000 ML 1,000 ML IV SCH (05:23)
--- NOTE | 2021-05-03 07:06 | Discharge Summary ---
Providers - Providers Date of Admission: 05/01/21 11:03 Attending physician: ALETHA OSBORNE MD 05/01/21 10:44 Consult to Physician [CONS] Routine Comment: Consulting Provider: ROXANNA SAUL Physician Instructions: Reason For Exam: Abnormal CT abd/pel, Abd pain Primary care physician: RICHA LUGO MD Hospitalization Reason for admission: Abdominal pain Condition: Good Hospital course: The patient is a 75-year-old female with past medical history of ljr-gmbsqhy-zowpouren diabetes, bilateral osteoarthritis of knees, hypertension who presented with 9/10, spasmodic abdominal pain that been going on for approximately 6 hours without nausea or vomiting. The patient is being admitted for management of possible choledocholithiasis. #Choledocholithiasis #Dilated biliary duct #Elevated transaminases #Hyperbilirubinemia -AST 265, ALT 195, T bili 3.3, D bili 2.4 -Gastroenterology consulted; pending recs -MRCP (05/01/2021) revealing "choledocholithiasis with moderate diffuse biliary dilatation" -Continue to trend liver enzymes and bilirubin. -Holding antibiotics since patient is hemodynamically stable, afebrile, and WBC is within normal limits. -Currently n.p.o.; can be changed to oral diet based on GI recommendations. -Continue to monitor #Hypokalemia #Hypertension -Presented with elevated blood pressure; however, patient admitted to not taking a.m. meds today. Restarting home antihypertensives: Coreg 25 mg twice daily, -P.o. Lasix 40 mg twice daily, and valsartan 160 mg daily. -Continue to monitor #Adi-rlesqqo-eaaotdbot diabetes -Diet controlled -Blood pressure goal [id number] while inpatient -Continue to monitor #Advanced care planning -Disease education conducted, care plan discussed, diagnoses discussed, prognosis discussed, and patient acknowledges understanding with care plan -Time: +30 minutes 05/02: She is n.p.o. at this time has not tried any diet but states that she still feels nauseated. Abdominal pain 6/10 BP elevated, will add IV prn Meds. Hold Valsatan 160mg since patient is NPO and start on IV enalapril. Will discuss with GI post procedure about discharge planning per their recommendation if tolerating diet. Plan discussed with the patient and also with the son 05/03: Patient seen and examined tolerated diet today no further pain. Stable for discharge. Patient underwent ERCP yesterday and reports as noted below she will also follow with her GI physician outpatient. Of advised on slow progression of diet. Plan: follow labs - start po and advance - if labs stable in am ok to dc from GI standpoint Original Note: Pre-op diagnosis: biliary stone Post-op diagnosis: same Findings: ERCP: nl ampullae - dilated cbd - sphinterotomy - smaa/medium stone x 2 removed - negative other Procedure: ERCP w/ stone removal Disposition: HOME / SELF CARE / HOMELESS Final Discharge Diagnosis (Prints w/discharge instructions): Choledocholithiasis with abdominal pain Time spent for discharge: 35 mins Core Measure Documentation - Palliative Care Palliative Care/ Comfort Measures: Not Applicable - Core Measures Any of the following diagnoses?: none Exam - Physical Exam Narrative exam: VITAL SIGNS: Reviewed. GENERAL: The patient appears normally developed, Vital signs as documented. HEAD: No signs of head trauma. EYES: Pupils are equal. Extraocular motions intact. EARS: Hearing grossly intact. MOUTH: Oropharynx is normal. NECK: No adenopathy, no JVD. CHEST: Chest with clear breath sounds bilaterally. No wheezes, rales, or rhonchi. CARDIAC: Regular rate and rhythm. S1 and S2, without murmurs, gallops, or rubs. VASCULAR: No Edema. Peripheral pulses normal and equal in all extremities. ABDOMEN: Soft, epigastric tenderness otherwise non distended. No rebound or guarding, and no masses palpated. Bowel Sounds normal. MUSCULOSKELETAL: Good range of motion of all major joints. Extremities without clubbing, cyanosis. Bilateral lymphedema left greater than right. NEUROLOGIC EXAM: Alert and oriented x 3 No focal sensory or strength de ficits. Speech normal. Follows commands. PSYCHIATRIC: Mood normal. SKIN: Surgical scar left shoulder well-healed detail exam as documented in skin assessment - Constitutional Vitals: Temp Pulse Resp BP Pulse Ox 99.1 F 67 18 174/69 97 05/02/21 22:02 05/02/21 22:02 05/02/21 22:02 05/02/21 22:04 05/02/21 22:02 Plan Activity: advance as tolerated, fall precautions Diet: low fat Special Instructions: record daily weights, record daily BP diary Plan of Treatment: must follow with PCP and surgeon on Management of Renal Mass. Follow up with: RICHA LUGO MD [Primary Care Provider] - 3-5 Days ROXANNA SAUL MD [Staff Physician] - 7 Days Prescriptions: oxyCODONE /ACETAMINOPHEN [Percocet 5/325] 1 tab PO Q6HR PRN #12 tablet PRN Reason: Pain Ondansetron [Zofran Odt] 4 mg PO Q6H PRN #30 tab.rapdis PRN Reason: Nausea And Vomiting
[2021-05-03 07:52] LABS: Albumin 3.7 g/dL (3.9-5)
[2021-05-03] MEDS: carvediloL 25 MG TAB PO SCH (09:48)
[2021-05-03] MEDS ORDERED: VALSARTAN 160MG TAB PO SCH (10:00)
[2021-05-03 12:06] VITALS: BP 141/53
[2021-05-03] MEDS: prednisoLONE ACETATE 1% OPHTH SUSP 5 ML OS SCH (12:12)
[2021-05-03] MEDS: KETOROLAC TROMETHAMINE 0.5% OU SCH (12:13)
--- NOTE | 2021-05-03 15:41 | Post Anesthesia Evaluation ---
- Post Anesthesia Evaluation Patient Participated: Yes Airway Patent: Yes Stable Respiratory Function: Yes Nausea/Vomiting: No Temp > 96.8F: Yes Pain Manageable: Yes Adequeate Hydration: Yes Anesthesia Complications: No Block Receding Appropriately: Not Applicable Patient on Ventilator: No Other Comments: patient is discharged home in satisfactory condition
--- NOTE | 2021-05-03 15:42 | Gastroenterology Progress Note ---
Assessment and Plan GI: s/p ercp with removal of stone x 2 - stable ovenright - lft's improved - diet as tolerated - ok to dc from GI standpoint Subjective Date of service: 05/03/21 Interval history: - no GI complaints overnight Objective - Constitutional Vitals: Temp Pulse Resp BP Pulse Ox 99.3 F 72 18 141/53 92 05/03/21 05:22 05/03/21 11:41 05/03/21 11:41 05/03/21 11:41 05/03/21 11:41 General appearance: no acute distress - EENT Eyes: PERRL - Respiratory Respiratory: bilateral: CTA - Cardiovascular Rhythm: regular Heart Sounds: Present: S1 & S2 - Gastrointestinal General gastrointestinal: Present: soft, non-tender, non-distended - Labs CBC & Chem 7: 05/01/21 07:01 05/03/21 07:21 Labs: Laboratory Results - last 24 hr 05/02/21 05/03/21 16:11 07:21 Sodium 142 139 Potassium 3.9 3.4 L Chloride 102.5 103.0 Carbon Dioxide 26 24 Anion Gap 17 15 BUN 8 13 Creatinine 0.8 1.3 H D Estimated GFR > 60 48 BUN/Creatinine Ratio 10 10 Glucose 122 H 123 H Calcium 9.4 9.0 Total Bilirubin 7.00 H 6.80 H AST 219 H 171 H ALT 262 H 221 H Alkaline Phosphatase 451 H 412 H Total Protein 6.3 6.0 L Albumin 4.1 3.7 L Albumin/Globulin Ratio 1.9 1.6
== END 2021-05-03 13:31 | disposition home or self-care (01) ==
LOC: ED 05:56 → 3A 11:03
PROVIDERS: ADMIT Student in an Organized Health Care Education/Training Program; ATTEND Internal Medicine
DX: K80.50 Calculus of bile duct without cholangitis or cholecystitis without obstruction (principal); I10 Essential (primary) hypertension; E11.9 Type 2 diabetes mellitus without complications; E78.5 Hyperlipidemia, unspecified; K83.9 Disease of biliary tract, unspecified; M17.0 Bilateral primary osteoarthritis of knee; G43.909 Migraine, unspecified, not intractable, without status migrainosus; R74.8 Abnormal levels of other serum enzymes; R74.01 Elevation of levels of liver transaminase levels; R10.9 Unspecified abdominal pain; K83.8 Other specified diseases of biliary tract; R17 Unspecified jaundice; R93.5 Abnormal findings on diagnostic imaging of other abdominal regions, including retroperitoneum; Z90.49 Acquired absence of other specified parts of digestive tract; Z90.710 Acquired absence of both cervix and uterus; Z79.82 Long term (current) use of aspirin
CPT/HCPCS: 36415; 43262; 74022; 74177; 74181; 74328; 80048; 80053; 80076; 81001; 82962; 83690; 85025; 96374; 96375; 96376; 99291; C1726; G0378; J0360; J2250; J2270; J2405; J2704; J3490; J7030; Q9967; J7120; Q0162; J1610

== ENCOUNTER 2022-02-16 08:13 | Outpatient (CLI) | payer MEDICARE ==
--- NOTE | 2022-02-19 14:36 | Mammography Report ---
BILATERAL DIGITAL DIAGNOSTIC MAMMOGRAM CONVENTIONAL, 02/16/2022 RIGHT LIMITED BREAST ULTRASOUND CLINICAL INFORMATION / INDICATION: Patient presents for evaluation of an area of focal pain and palpa ble concern in the right breast. ABNORMAL MAMMOGRAM N63.10 TECHNIQUE: Digital bilateral mammographic imaging was performed. Spot compression views were obtained . Limited ultrasound was performed. COMPARISON: Prior mammogram 09/04/2021 and 04/27/2020 FINDINGS: Breast Density: There are scattered areas of fibroglandular density. MAMMOGRAPHIC FINDINGS: No dominant mass, suspicious calcifications, or architectural distortion in ei ther breast. There has been no significant change compared with the prior examinations. There is no m ammographic abnormality to account for the area of focal pain and palpable concern in the right breas t, therefore targeted right breast ultrasound was performed for further evaluation. ULTRASOUND FINDINGS: Targeted ultrasound evaluation was performed of the area of interest. Targeted ultrasound of the general area of palpable concern in the 10 to 12:00 position of the right breast r eveals 2 tiny benign cysts in the 12:00 position located 3-4 cm from nipple, each measuring up to 3 t o 4 mm. No suspicious sonographic abnormality identified. IMPRESSION: 1. There is no suspicious mammographic or sonographic abnormality to account for the area of focal pa in and palpable concern in the right breast, therefore clinical correlation is recommended. Follow up recommendation: Routine yearly screening mammogram. BI-RADS Category 2: BENIGN. A "normal" or negative report should not discourage follow up or biopsy of a clinically significant f inding. A written summary of these findings will be mailed to the patient. The patient will be entered into a mammography reporting system which will generate a reminder letter for the patient's next appointmen t at the appropriate interval. According to the [employer], yearly mammograms are recommended starting at age 40 and continuing as long as a woman is in good health. Breast MRI is recommended for women with an kory roximately 20-25% or greater lifetime risk of breast cancer, including women with a strong family his tory of breast or ovarian cancer and women who have been treated for Hodgkin's disease. Signer Name: Audrey Reyes MD Signed: 02/19/2022 2:32 PM Workstation Name: [email or web address]
== END 2022-02-16 08:14 | disposition home or self-care (01) ==
LOC: MAMMO 08:13
PROVIDERS: ATTEND Family Medicine
DX: N63.10 Unspecified lump in the right breast, unspecified quadrant (principal); N64.4 Mastodynia
CPT/HCPCS: 77066